=== PATIENT | male | born 1955 | race Caucasian/White ===

== ENCOUNTER 2016-10-29 08:29 | Day surgery (SDC) | payer OTHER ==
[2016-10-28 08:31] VITALS: BMI 27.2
[~2016-10-29 08:29] MED LIST: DEXAMETHASONE SOD PHOSPHATE 10 MG/ML 1 ML VIAL IV ONE; FAMOTIDINE 20 MG/2 ML VIAL IV PRN; HEPARIN SODIUM,PORCINE 5,000 UNIT/ML 1 ML VIAL SQ ONE; HYDROmorphone 1 MG/ML 1 ML SYRINGE IVP PRN; LIDOCAINE 1% 20 ML VIAL (10MG/ML) FOR IV START INTRADERMA PRN; MIDAZOLAM 2 MG/2 ML VIAL IV PRN; ceFAZolin 2 GM in SODIUM CHLORIDE 0.9% 100 ML IVPB ONE
[2016-10-29] MEDS: LACTATED RINGERS 1,000 ML IV SCH (09:07)
[2016-10-29] MEDS ORDERED: ONDANSETRON 4 MG/2 ML VIAL IVP ONE (09:12)
[2016-10-29] MEDS ORDERED: KETOROLAC 30 MG/ML 1 ML VIAL ONE (09:29)
[2016-10-29] MEDS ORDERED: ROCURONIUM BROMIDE 10 MG/ML 10 ML VIAL IV ONE (09:29)
[2016-10-29] MEDS ORDERED: LIDOCAINE 1% INJ 10MG/ML (20 ML MDV) ONE (09:29)
[2016-10-29] MEDS ORDERED: MIDAZOLAM 2 MG/2 ML VIAL ONE (09:29)
[2016-10-29] MEDS ORDERED: PROPOFOL 10 MG/ML 20 ML VIAL IV ONE (09:29)
[2016-10-29] MEDS ORDERED: fentaNYL (PF) 50 MCG/ML 2 ML AMP ONE (09:29)
[2016-10-29] MEDS ORDERED: GLYCOPYRROLATE 0.2 MG/ML 2 ML VIAL ONE (09:29)
[2016-10-29] MEDS ORDERED: SUCCINYLCHOLINE CHLORIDE 100 MG/5 ML SYR IV ONE (09:29)
[2016-10-29] MEDS ORDERED: NEOSTIGMINE 1 MG/ML 10 ML VIAL ONE (09:29)
[2016-10-29] MEDS ORDERED: HYDROmorphone (PF) 1 MG/ML ONE (09:29)
[2016-10-29] MEDS ORDERED: LIDOCAINE 1%-EPI 1:100,000 20 ML VIAL SQ ONE (09:59)
[2016-10-29] MEDS ORDERED: LACTATED RINGERS 1,000 ML IV ONE (11:16)
--- NOTE | 2016-10-29 11:29 | P.OP ---
Date of Procedure: 10/29/16 Preoperative Diagnosis: Right inguinal hernia Postoperative Diagnosis: Right direct inguinal hernia containing incarcerated fat Procedure(s) Performed: Robot assisted right inguinal hernia repair with mesh Implants: Bard Progrip 10x15 cm mesh Anesthesia: MEGHA Surgeon: Pari Youngblood Pathology: none sent Disposition: PACU Description of Procedure: Informed consent was obtained patient and then The patient was brought to the operating room and placed in supine position. General anesthesia with endotracheal intubation was performed as per anesthesia team. A malcolm catheter was inserted under sterile aseptic precautions. Chlorhexidine was used to prep the skin followed by application of sterile drapes . He was placed in the lithotomy position.A timeout was performed to verify correct patient, correct procedure and correct side. Patient was confirmed to receive perioperative IV antibiotics, subcutaneous heparin 5000 units and bilateral SCDs were placed. The left upper quadrant point was identified and a stab incision was made. Veress needle was introduced and placement was confirmed with the help of the drop test. The abdomen was then insufflated to 15 mmHg. Once that was done 5 mm port was introduced into the left upper quadrant using the Optiview technique after which a 12 mm port was placed in the supraumbilical position and a 8 mm port in the right lower quadrant and then after that the another 8 mm robotic port was placed in the left upper quadrant. The robot was then docked with the central camera port and the 2 side working ports. The 30 degree of scope was introduced and the abdomen through the 12 mm port site. Cardiere grasper for the left hand and scissor in the right hand was introduced in the abdominal cavity after which the median umbilical fold was retracted laterally towards the opposite side a small incision was made at the junction of the umbilical fold and the peritoneum and carried all the way laterally thus creating a small plane in the preperitoneal space. The flap was developed further with the help of blunt dissection using gentle stroking maneuvers all the way down to Damon ligament medially and laterally we went inferior exposing the vessels inferiorly. The vas was identified and there was no indirect inguinal hernia. The direct sac was identified and dissected free from the surrounding tissues and reduced completely after which was made sure that there was nothing on the inferior margin that would block the mesh all bands were teased off gently. The Bard Pro safety director mesh was introduced in the abdominal cavity with the lower part above the level of the peritoneal fold was then unfolded so that it covered all the orifices and covered the Damon's ligament medially.Once it had been positioned perfectly the peritoneal defects were closed with the help of old running V lock suture. All the needles were then removed and accounted for. At this time the procedure was completed. The robotic instruments were removed and the robot was undocked. Using the laparoscope 12 mm port site was closed using a Prudencio Roman under direct vision. Once that was done the abdomen was desufflated and the skin was closed with the help of 4-0 Monocryl. Dermabond was applied. Patient tolerated the procedure well. There were no complications. The Malcolm catheter was removed and the patient extubated taken to recovery room in stable condition.
[2016-10-29 11:42] VITALS: TEMP 98.3
[2016-10-29 12:03] VITALS: RESP 16
[2016-10-29 14:02] VITALS: BP 123/65; PULSE 79
== END 2016-10-29 16:16 | disposition home or self-care (01) ==
LOC: OR 08:29
PROVIDERS: ATTEND Surgery
DX: K40.90 Unilateral inguinal hernia, without obstruction or gangrene, not specified as recurrent (principal); I10 Essential (primary) hypertension; Z88.5 Allergy status to narcotic agent; Z79.82 Long term (current) use of aspirin; Z79.899 Other long term (current) drug therapy; Z82.49 Family history of ischemic heart disease and other diseases of the circulatory system
CPT/HCPCS: 49650; C1781; J2250; J1644; J1100; J2710; J0690; J2405; J2001; J3010; J1885; J1170; J0330; J2704

== ENCOUNTER 2017-08-16 10:14 | Day surgery (SDC) | payer OTHER ==
[2017-08-12 15:38] VITALS: BMI 27.3
[~2017-08-16 10:14] MED LIST changes: -DEXAMETHASONE SOD PHOSPHATE 10 MG/ML 1 ML VIAL IV ONE; -FAMOTIDINE 20 MG/2 ML VIAL IV PRN; -HEPARIN SODIUM,PORCINE 5,000 UNIT/ML 1 ML VIAL SQ ONE; -HYDROmorphone 1 MG/ML 1 ML SYRINGE IVP PRN; +LACTATED RINGERS 1,000 ML IV SCH; -MIDAZOLAM 2 MG/2 ML VIAL IV PRN; -ceFAZolin 2 GM in SODIUM CHLORIDE 0.9% 100 ML IVPB ONE
[2017-08-16 10:29] VITALS: RESP 18; TEMP 98.1
[2017-08-16] MEDS ORDERED: LACTATED RINGERS 1,000 ML IV ONE (10:29)
[2017-08-16] MEDS ORDERED: LIDOCAINE 1% INJ 10MG/ML (20 ML MDV) ONE (10:55)
[2017-08-16] MEDS ORDERED: PROPOFOL 10 MG/ML 20 ML VIAL IV ONE (10:55)
[2017-08-16] MEDS ORDERED: MIDAZOLAM 2 MG/2 ML VIAL ONE (10:55)
--- NOTE | 2017-08-16 11:36 | P.PCN ---
Date of Procedure: 08/16/17 Procedure(s) Performed: Procedure: Total colonoscopy. Preoperative diagnosis: Screening for neoplasia, patient has history of polyps. Postoperative diagnosis: Mild sigmoid diverticulosis with no evidence of acute diverticulitis, strictures polyps or cancer. Preparation: HalfLytely prep. Sedation: Was provided by anesthesia. Brief clinical history: The patient is a 62-year-old male who is scheduled for this evaluation for screening for neoplasia, age being his risk factor as well as history of polyps. His last exam was in October 2010. The patient has no abdominal complaints, bleeding or anemia. Procedure: With the patient on his left lateral decubitus position and after informed consent and adequate sedation, the perianal area was inspected and it did not show any fissures or fistulas. There were no masses felt on digital rectal examination. The Olympus CFQ 160L video colonoscope was then inserted in the rectum in the usual fashion and advanced to the cecum. The mucosa appeared healthy. There was occasional diverticular orifices seen scattered in the sigmoid with no evidence of acute diverticulitis or strictures. No polyps or tumors were seen. I retroflexed the endoscope in the rectum before the endoscope was withdrawn. The patient tolerated the procedure well. Plan: The patient was reassured. Discussed dietary measures. He will follow up with you as planned and I recommended repeat exam in 5 years.
[2017-08-16 11:47] VITALS: BP 131/76; PULSE 83
== END 2017-08-16 12:20 | disposition home or self-care (01) ==
LOC: ORWHC2ENDO 10:14
DX: Z12.11 Encounter for screening for malignant neoplasm of colon (principal); K57.30 Diverticulosis of large intestine without perforation or abscess without bleeding; I10 Essential (primary) hypertension; M19.90 Unspecified osteoarthritis, unspecified site; N40.0 Benign prostatic hyperplasia without lower urinary tract symptoms; Z86.010 Personal history of colon polyps; Z88.5 Allergy status to narcotic agent; Z79.82 Long term (current) use of aspirin; Z79.1 Long term (current) use of non-steroidal anti-inflammatories (NSAID); Z79.899 Other long term (current) drug therapy
CPT/HCPCS: G0105; J2250; J2001; J2704; 45378

== ENCOUNTER 2022-04-03 08:37 | Day surgery (SDC) | payer MEDICARE, OTHER ==
[2022-04-02 08:27] VITALS: BMI 26.2
[~2022-04-03 08:37] MED LIST changes: -LIDOCAINE 1% 20 ML VIAL (10MG/ML) FOR IV START INTRADERMA PRN
[2022-04-03 08:55] VITALS: TEMP 97.4
[2022-04-03] MEDS ORDERED: LACTATED RINGERS 1,000 ML IV ONE (09:10)
[2022-04-03] MEDS ORDERED: PROPOFOL 10 MG/ML 20 ML VIAL IV ONE (10:19)
[2022-04-03] MEDS ORDERED: LIDOCAINE 2% INJ 20 MG/ML (2 ML VIAL) ONE (10:19)
--- NOTE | 2022-04-03 10:35 | P.PCN ---
Date of Procedure: 04/03/22 Procedure(s) Performed: BRIEF HISTORY: Patient is a 67-year-old pleasant male scheduled for an elective colonoscopy as a part of evaluation of change in bowel habits. PROCEDURE PERFORMED: Colonoscopy with biopsy. PREOPERATIVE DIAGNOSIS: Change in bowel habits. IV sedation per Anesthesia. PROCEDURE: After informed consent was obtained, the patient, was brought into the endoscopy unit. IV sedation was administered by Anesthesia under continuous monitoring. Digital rectal examination was normal. Initially the Olympus CF-160 flexible video colonoscope was then inserted in the rectum, gradually advanced into the cecum without any difficulty. Careful examination was performed as the scope was gradually being withdrawn. Ileocecal valve and the appendiceal orifice were visualized and appeared normal. Prep was excellent. Mucosa of the cecum, ascending colon, appeared normal. In the transverse colon there was a 3-4 mm polyp that was removed by cold biopsy. Rest of the transverse colon, descending colon, sigmoid colon, and rectum appeared normal. Scattered left-sided diverticulosis seen. Retroflexion was performed in the rectum and no lesions were seen. The patient tolerated the procedure well. IMPRESSION: 3-4 mm transverse colon polyp status post cold biopsy Scattered sigmoid diverticulosis RECOMMENDATIONS: Findings of this examination were discussed with the patient as well as a family. He was advised to follow with the biopsy results.. The biopsy reveals adenoma he can have a repeat colonoscopy in 5 years. He was advised to be a high-fiber diet and take fiber supplements a regular basis.
[2022-04-03] MEDS ORDERED: IV FLUID CONTINUATION 1,000 ML IV ONE (10:38)
[2022-04-03 10:41] VITALS: RESP 16
[2022-04-03 10:57] VITALS: BP 113/81; PULSE 75
== END 2022-04-03 11:24 | disposition home or self-care (01) ==
LOC: ORWHC2ENDO 08:37
PROVIDERS: ATTEND Internal Medicine Gastroenterology
DX: D12.3 Benign neoplasm of transverse colon (principal); K57.30 Diverticulosis of large intestine without perforation or abscess without bleeding; I10 Essential (primary) hypertension; E78.5 Hyperlipidemia, unspecified; Z88.5 Allergy status to narcotic agent; Z79.899 Other long term (current) drug therapy
CPT/HCPCS: 88305; 45380; J2704; J2001

== ENCOUNTER → 2024-10-13 | Outpatient (CLI) | payer MEDICARE, OTHER ==
--- NOTE | 2024-10-13 09:42 | MR ---
EXAMINATION TYPE: MR lumbar spine wo con DATE OF EXAM: 10/13/2024 9:16 AM COMPARISON: None. CLINICAL INDICATION: Male, 69 years old with history of M51.369 DISC DEGEN M54.16 RADICULOPATHY M51. 361, Radiculopathy, degenerative disc disease TECHNIQUE: Multiplanar, multisequence images of the lumbar spine were acquired without IV contrast. FINDINGS: There is some degenerated levoconvex curvature noted. There appears to be left lateral subluxation of L4 on L5 along with prominent grade 1 anterolisthesis . L4-L5. Associated moderate to severe degenerative disc disease with desiccated, narrowed, and bulgi ng disc with associated Modic type II fatty endplate change. Advanced hypertrophic facet arthropathy mid to lower lumbar spine. Unable to clearly determine if the re is an underlying pars defect contributing to the subluxation. Additional grade 1 retrolisthesis L2-L3. Remaining alignment is maintained. Conus medullaris is normal. Vertebral body heights are preserved. Prominent heterogeneous marrow signal suggesting red marrow hyperplasia. Bulging disc impresses onto the ventral thecal sac at L2-L3 and L4-L5 but without significant spinal canal stenosis. On the right, resulting in moderate neural foraminal stenosis at L4-L5 and mild at L5-S1. On the left, changes result in moderate to severe neural foraminal stenosis at L5-S1. Large left late ral disc osteophyte complex may impinge the extraforaminal left L5 nerve root. No prevertebral or paravertebral soft tissue abnormality seen. IMPRESSION: 1. Hypertrophic facet arthropathy mid to lower lumbar spine. There is left lateral subluxation of L4 on L5 along with a prominent grade 1 anterolisthesis here. Unable to clearly determine if this is sec ondary to hypertrophic facet arthropathy or underlying pars defect. Consider CT for more detailed ass essment of the bony anatomy if indicated. 2. Moderate to severe degenerative disc disease here at L4-L5. Overall changes result in moderate rig ht neuroforaminal stenosis at this level. No significant spinal canal stenosis. 3. Mild multilevel degenerative disc disease elsewhere in the lumbar spine. Degenerative grade 1 retr olisthesis L2-L3. 4. Moderate to severe left foraminal stenosis at L5-S1. In addition, left lateral disc osteophyte com plex at this level may impinge the extraforaminal left L5 nerve root. [facility], , 10/13/2024 9:39 AM
== END | disposition home or self-care (01) ==
LOC: RADMRIMAIN 08:32
PROVIDERS: ATTEND Orthopaedic Surgery
DX: M51.16 Intervertebral disc disorders with radiculopathy, lumbar region (principal); M47.26 Other spondylosis with radiculopathy, lumbar region; M99.73 Connective tissue and disc stenosis of intervertebral foramina of lumbar region; M25.78 Osteophyte, vertebrae
CPT/HCPCS: 72148